=== PATIENT | male | born 1950 | race Caucasian/White ===

== ENCOUNTER → 2018-05-12 | Outpatient (CLI) | payer MEDICARE, OTHER ==
[~2018-05-12] MED LIST: AMANTADINE100 M1 PO; ASPIR 8181 MG PO; AZILECT0.5 MG PO; COREG6.25 MG PO; FLOMAX0.4 MG PO; MAXZIDE-25 MG1 EACH PO; MYRBETRIQ50 MG PO; PRILOSEC 20 MG20 MG PO; SINEMET 25-1001 EAC1 PO; VESICARE 5 MG TA5 MG PO
[2018-05-12 16:17] LABS: HEMATOCRIT 46.8 % (42.0-52.0); HEMOGLOBIN 16.2 gm/dL (14.0-18.0); MCH 31.6 pg (26.0-34.0); MCHC 34.5 g/dL (28.0-37.0); MCV 91.5 fL (80.0-100.0); MPV 8.6 fl. (7.2-11.1); RBC 5.12 mil/uL (4.50-6.00); RDW-CV 13.8 % (10.5-14.5); WBC 7.9 thou/uL (4.0-11.0)
[2018-05-12 16:31] LABS: ALBUMIN 3.9 g/dL (3.4-5.0); ALKALINE PHOSPHATASE 59 U/L (46-116); ANION GAP 6 mmol/L (7-16); BUN 18 mg/dL (7-18); CALCIUM 8.7 mg/dL (8.5-10.1); CHLORIDE 105 mmol/L (98-107); CHOLESTEROL 127 mg/dL (<200); CO2 32 mmol/L (21-32); CREATININE 1.2 mg/dL (0.6-1.3); GLUCOSE 100 mg/dL (70-99); HDL CHOLESTEROL 57 mg/dL (>40); LDL CHOLESTEROL 62 mg/dL (<100); POTASSIUM 3.6 mmol/L (3.5-5.1); SERUM ASSESSMENT Clear; SGOT 14 U/L (15-37); SGPT 12 U/L (30-65); SODIUM 143 mmol/L (136-145); TC:HDL 2.2 Ratio (Not establshd); TOTAL BILIRUBIN 0.9 mg/dL (<0.1-1.0); TOTAL PROTEIN 7.8 g/dL (6.4-8.2); TRIGLYCERIDE 44 mg/dL (<150); VLDL 9 mg/dL (<40)
== END ==
LOC: M.LAB 15:54
PROVIDERS: Internal Medicine Cardiovascular Disease
DX: I10 Essential (primary) hypertension (principal)

== ENCOUNTER 2020-02-22 15:57 | Inpatient (IN) | payer MEDICARE, OTHER ==
[~2020-02-22] VITALS: Ht 190.5 cm; Wt 100.8 kg
[2020-02-22 16:00] VITALS: BP 155/95
[2020-02-22 16:25] LABS: HEMATOCRIT 43.1 % (42.0-52.0); MCH 31.1 pg (26.0-34.0); MCHC 34.8 g/dL (28.0-37.0); MCV 89.5 fL (80.0-100.0); MPV 8.5 fl. (7.2-11.1); NUCLEATED RBCS 0 /100WBC; PLATELET COUNT* 133 thou/uL (150-400); RBC 4.82 mil/uL (4.50-6.00); RDW-CV 13.6 % (10.5-14.5)
[2020-02-22 16:34] LABS: CALCIUM 7.4 mg/dL (8.5-10.1); CREATININE 1.1 mg/dL (0.6-1.3)
[2020-02-22 16:36] LABS: APTT 37.4 Seconds (25.0-31.3); INR 1.1; PROTIME 11.7 Seconds (9.20-11.50)
[2020-02-22 16:50] LABS: ALBUMIN 2.6 g/dL (3.4-5.0); TOTAL BILIRUBIN 0.9 mg/dL (<0.1-1.0); TOTAL PROTEIN 6.7 g/dL (6.4-8.2)
[2020-02-22 16:52] LABS: POTASSIUM 2.8 mmol/L (3.5-5.1)
[2020-02-22 17:14] LABS: ABSOLUTE LYMPHOCYTES 0.6 thou/uL (0.8-5.3); ABSOLUTE MONOCYTES 0.1 thou/uL (0.0-1.2); ABSOLUTE NEUTROPHILS 6.2 thou/uL (1.6-8.1); ATYPICAL LYMPHS 5 %; PLATELET ESTIMATE ADEQUATE
[2020-02-22 21:07] VITALS: BP 132/90
[2020-02-22 21:30] VITALS: BP 127/80
[2020-02-23] VITALS: BP 147/89
[2020-02-23 04:00] VITALS: BP 164/107
[2020-02-23 05:22] LABS: CALCIUM 8.5 mg/dL (8.5-10.1); POTASSIUM 3.6 mmol/L (3.5-5.1)
[2020-02-23 05:24] LABS: MAGNESIUM 2.1 mg/dL (1.8-2.4); PHOSPHORUS* 3.2 mg/dL (2.5-4.9)
[2020-02-23 07:02] LABS: URINE BILIRUBIN NEGATIVE (Negative); URINE BLOOD 3+ (Negative); URINE CLARITY CLEAR; URINE COLOR YELLOW; URINE GLUCOSE-RANDOM 1+ (Negative); URINE KETONES 2+ (Negative); URINE LEUKOCYTES-REFLEX NEGATIVE (Negative); URINE NITRITE-REFLEX NEGATIVE (Negative); URINE PROTEIN 1+ (Negative); URINE SPECIFIC GRAVITY >= 1.030 (1.005-1.030)
[2020-02-23 07:09] LABS: BACTERIA-REFLEX 1-9 Few /HPF (None Seen); CASTS None Seen /LPF (None Seen); CRYSTALS None Seen /LPF (None Seen); MUCUS 0-3 Light strn/LPF (None Seen); SQUAMOUS 0-3 Few /LPF (0-3); URINE RBC >20 Many /HPF (0-2); URINE WBC-REFLEX 0-5 Rare /HPF (0-5)
[2020-02-23 09:30] VITALS: BP 123/90
--- NOTE | 2020-02-23 10:59 | EKG ---
[place] [address] ELECTROCARDIOGRAM REPORT Name: AMIRAHMAXWELL Room: [address] ADM IN M.R.#: [id number] Admission: 02/22/20 Attend Phys: Ildefonso Mathews Discharge: Date of : 50 Date of Service: 02/22/20 1615 Report #: [id number] THIS REPORT FOR: //name// [facility] ED Test Date: 2020-02-22 Test Time: 16:15:42 Pat Name: MAXWELL MACARIO Department: Room: [facility] Gender: M Transformer Maker: RC : 1950 Requested By: Peterson Reyes Order Number: [id number] MD: Cuauhtemoc Hope Measurements Intervals [place] Rate: 97 P: 25 [place]: 154 QRS: 31 QRSD: 89 T: -34 QT: 341 QTc: 433 Interpretive Statements Sinus rhythm artifact noted Borderline T wave abnormalities No previous ECG available for comparison Electronically Signed On 02-23-2020 10:59:23 SPEECH COMMUNICATION PROFESSOR by Cuauhtemoc Hope [email or web address] <ELECTRONICALLY SIGNED> By: Cuauhtemoc Hope MD, [facility] 02/23/20 1059 1615 1615 Cuauhtemoc Hope MD, [facility] /EPI
[2020-02-23 12:00] VITALS: BP 142/90
[2020-02-23 16:00] VITALS: BP 154/50
[2020-02-23 20:00] VITALS: BP 157/99
[2020-02-24] VITALS: BP 114/93
[2020-02-24 04:00] VITALS: BP 141/89
[2020-02-24 08:00] VITALS: BP 163/103
[2020-02-24 11:30] VITALS: BP 146/91
[2020-02-24 16:30] VITALS: BP 150/95
[2020-02-24 20:49] VITALS: BP 159/87
[2020-02-25 00:08] VITALS: BP 152/84
[2020-02-25 04:00] VITALS: BP 147/94
[2020-02-25 05:12] LABS: HEMATOCRIT 39.6 % (42.0-52.0); HEMOGLOBIN 13.5 gm/dL (14.0-18.0); MCH 30.6 pg (26.0-34.0); MPV 8.4 fl. (7.2-11.1); RBC 4.4 mil/uL (4.50-6.00); RDW-CV 13.5 % (10.5-14.5)
[2020-02-25 05:24] LABS: ALBUMIN 2.1 g/dL (3.4-5.0); CALCIUM 7.5 mg/dL (8.5-10.1); CREATININE 0.9 mg/dL (0.6-1.3); POTASSIUM 3.6 mmol/L (3.5-5.1); TOTAL BILIRUBIN 0.6 mg/dL (<0.1-1.0); TOTAL PROTEIN 5.6 g/dL (6.4-8.2)
[2020-02-25 07:50] VITALS: BP 150/90
--- NOTE | 2020-02-25 12:37 | CON ---
[address] [address] CONSULTATION Name: MAXWELL MACARIO Room: [address] IN M.R.#: [id number] Admission: 02/22/20 Attend Phys: Ildefonso Álvarez, Discharge: Date of : 50 Report #: [id number] THIS REPORT FOR: cc: Damon Alberts MD, Usman MD ~ Yaw Swann MD DATE OF SERVICE: 02/24/2020 REQUESTING PHYSICIAN: Armaan Wallace D.O. INDICATION FOR CONSULTATION: COVID-19. HISTORY OF PRESENT ILLNESS: This is a 69-year-old gentleman with past medical history is as mentioned below. He does have an extensive history of smoking and therefore, although COPD is not listed on his records, I have suspicion that he may have underlying COPD. The patient also has had severe gastroesophageal reflux in the past and has parkinsonism. The patient is now admitted with acute shortness of breath. He was also hypoxemic with O2 saturations dropping to 85% at home. The patient has had a meeting with an individual who is now known to be COVID positive recently. Initially, he did have some chest pain and shortness of breath as well. He had been coughing in addition to being febrile. He was feeling significantly weak and had some sputum production and congestion in his chest as well. There is no swelling of lower extremities or calf pain. He answers to the negative for 10 questions for review of systems except as above. PAST MEDICAL HISTORY: Parkinsonism, severe gastroesophageal reflux in the past with Brunson's esophagus. Reflexes now under control. 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 SOCIAL HISTORY: Previous history of smoking, now discontinued. No known history of heavy alcohol use or illegal drug use. ALLERGIES: SULFONAMIDE ANTIBIOTICS. FAMILY HISTORY: No pertinent family history; however, as above he has had contact with an individual who is known to be COVID positive. LABORATORY DATA AND IMAGING: The patient's lab work and x-rays reviewed. PHYSICAL EXAMINATION: GENERAL: He is alert, awake, and oriented. VITAL SIGNS: In the records reviewed. [place] [address] CONSULTATION Name: MAXWELL MACARIO Room: [address] IN [facility].#: [id number] Admission: 02/22/20 Attend Phys: Ildefonso Álvarez, Discharge: Date of : 50 Report #: [id number] NECK: Does not show raised JVP. CHEST: Clear to auscultation. HEART: Regular, no murmur. ABDOMEN: Soft and nontender. EXTREMITIES: Lower extremities, no edema and no calf tenderness. ASSESSMENT AND PLAN: 1. COVID-19. I will begin tapering down his steroids and follow response and because he is already improving and he is on room air, I decided not to start with remdesivir and convalescent plasma. At this state certainly if he was to worsen, these will be considerations. 2. Pulmonary infiltrates. The patient's chest x-ray is reviewed. He does have bilateral pulmonary infiltrates including a band-like infiltrate in the right mid lung field. I do not have a previous x-ray available for comparison. As the infiltrate in the right mid zone is focal, I suspect that there may be some secondary bacterial infection as well. The patient already is on azithromycin as well as ceftriaxone and I feel that this is reasonable. If feasible, then we will do a nasal swab for methicillin-resistant Staphylococcus aureus and sputum culture. 3. History of parkinsonism. 4. History of severe gastroesophageal reflux disease, he is on Protonix. 5. History of smoking, suspect he has underlying chronic obstructive pulmonary disease, Jaimevana is added. 6. Deep vein thrombosis prophylaxis, we will add Lovenox. 7. Evaluation for thromboembolic phenomena. I ordered a D-dimer with morning labs. In case he fails to improve and his D-dimer is elevated, then evaluating further for thromboembolism could be a consideration tomorrow. Thanks for this consultation. <ELECTRONICALLY SIGNED> By: Yaw Swann MD 02/25/20 1237 1721 2052Alinda Swann MD /nt
[2020-02-25 15:35] VITALS: BP 134/79
[2020-02-25 19:40] VITALS: BP 151/94
[2020-02-26] VITALS (7 sets, daily range): BP systolic 153–173; BP diastolic 96–108
[2020-02-26 05:15] LABS: HEMATOCRIT 39.9 % (42.0-52.0); HEMOGLOBIN 13.7 gm/dL (14.0-18.0); MCH 30.8 pg (26.0-34.0); MCHC 34.3 g/dL (28.0-37.0); MCV 89.7 fL (80.0-100.0); MPV 8.7 fl. (7.2-11.1); NUCLEATED RBCS 0 /100WBC; PLATELET COUNT* 156 thou/uL (150-400); RBC 4.45 mil/uL (4.50-6.00); RDW-CV 13.9 % (10.5-14.5); WBC 10.5 thou/uL (4.0-11.0)
[2020-02-26 05:37] LABS: ALBUMIN 2.2 g/dL (3.4-5.0); CREATININE 1.1 mg/dL (0.6-1.3); POTASSIUM 3.8 mmol/L (3.5-5.1); TOTAL BILIRUBIN 0.5 mg/dL (<0.1-1.0); TOTAL PROTEIN 6.1 g/dL (6.4-8.2)
[2020-02-26 07:18] LABS: ABSOLUTE LYMPHOCYTES 0.5 thou/uL (0.8-5.3); ABSOLUTE MONOCYTES 0.4 thou/uL (0.0-1.2); ABSOLUTE NEUTROPHILS 9.6 thou/uL (1.6-8.1); METAMYELOCYTES 2 %; PLATELET ESTIMATE ADEQUATE
[2020-02-26 16:05] LABS: CALCIUM 7.7 mg/dL (8.5-10.1); POTASSIUM 3.7 mmol/L (3.5-5.1)
[2020-02-27 02:14] VITALS: BP 161/101; BP 165/108; BP 173/96
[2020-02-27 08:05] VITALS: BP 168/100
[2020-02-27 12:00] VITALS: BP 159/101
[2020-02-27 13:05] VITALS: BP 145/94
[2020-02-27 16:00] VITALS: BP 164/98
[2020-02-27 20:30] VITALS: BP 165/60
[2020-02-28] VITALS: BP 155/95
[2020-02-28 04:00] VITALS: BP 145/93
[2020-02-28 05:03] LABS: HEMATOCRIT 42.1 % (42.0-52.0); HEMOGLOBIN 14.4 gm/dL (14.0-18.0); MCH 30.4 pg (26.0-34.0); MCHC 34.1 g/dL (28.0-37.0); MPV 8.3 fl. (7.2-11.1); RBC 4.73 mil/uL (4.50-6.00); RDW-CV 13.7 % (10.5-14.5); WBC 11.9 thou/uL (4.0-11.0)
[2020-02-28 05:30] LABS: ALBUMIN 2.2 g/dL (3.4-5.0); CALCIUM 7.7 mg/dL (8.5-10.1); CREATININE 0.8 mg/dL (0.6-1.3); MAGNESIUM 2.2 mg/dL (1.8-2.4); POTASSIUM 3.9 mmol/L (3.5-5.1); TOTAL BILIRUBIN 0.5 mg/dL (<0.1-1.0)
[2020-02-28 05:50] LABS: BE 2.4 mmol/L (-2 to +3); PCO2 34.1 mmHg (35.0-45.0); PO2 81.6 mmHg (75.0-100.0); pH 7.488 (7.340-7.450)
[2020-02-28 08:00] VITALS: BP 160/99
[2020-02-28 13:35] VITALS: BP 121/77
[2020-02-28 17:53] VITALS: BP 144/94
[2020-02-28 20:00] VITALS: BP 146/91
[2020-02-29 00:20] VITALS: BP 146/92
[2020-02-29 04:44] VITALS: BP 146/105
[2020-02-29 09:09] VITALS: BP 147/94
[2020-02-29 09:11] LABS: CALCIUM 7.6 mg/dL (8.5-10.1); CREATININE 0.9 mg/dL (0.6-1.3); POTASSIUM 4.2 mmol/L (3.5-5.1)
[2020-02-29 16:00] VITALS: BP 139/83
[2020-02-29 20:00] VITALS: BP 138/90
[2020-03-01 00:29] VITALS: BP 135/87
[2020-03-01 04:00] VITALS: BP 162/100
[2020-03-01 08:30] VITALS: BP 154/97
[2020-03-01 09:53] LABS: CALCIUM 7.6 mg/dL (8.5-10.1); CREATININE 0.9 mg/dL (0.6-1.3); POTASSIUM 4.1 mmol/L (3.5-5.1)
[2020-03-01 12:30] VITALS: BP 126/80
[2020-03-01 16:00] VITALS: BP 126/87
[2020-03-01 20:00] VITALS: BP 130/86
[2020-03-02 00:58] VITALS: BP 125/79
[2020-03-02 05:03] VITALS: BP 137/89
[2020-03-02 05:08] LABS: HEMATOCRIT 43.3 % (42.0-52.0); HEMOGLOBIN 14.7 gm/dL (14.0-18.0); MCHC 33.8 g/dL (28.0-37.0); MCV 88.8 fL (80.0-100.0); MPV 8.5 fl. (7.2-11.1); NUCLEATED RBCS 0 /100WBC; PLATELET COUNT* 285 thou/uL (150-400); RBC 4.88 mil/uL (4.50-6.00); RDW-CV 13.5 % (10.5-14.5); WBC 12.8 thou/uL (4.0-11.0)
[2020-03-02 05:17] LABS: ALBUMIN 2.3 g/dL (3.4-5.0); CALCIUM 7.5 mg/dL (8.5-10.1); CREATININE 0.9 mg/dL (0.6-1.3); MAGNESIUM 2.2 mg/dL (1.8-2.4); TOTAL BILIRUBIN 0.7 mg/dL (<0.1-1.0); TOTAL PROTEIN 5.7 g/dL (6.4-8.2)
[2020-03-02 06:31] LABS: ABSOLUTE LYMPHOCYTES 0.5 thou/uL (0.8-5.3); ABSOLUTE MONOCYTES 0.8 thou/uL (0.0-1.2); ABSOLUTE NEUTROPHILS 11.5 thou/uL (1.6-8.1); METAMYELOCYTES 1 %; PLATELET ESTIMATE ADEQUATE
[2020-03-02 08:15] VITALS: BP 140/87
[2020-03-02] MEDS ORDERED: FISH OIL 1,001000 M2 PO (11:24)
[2020-03-02] MEDS ORDERED: FELODIPINE 5 MG5 M1 PO (11:24)
[2020-03-02] MEDS ORDERED: ASPIRIN-DIPYRI1 EACH PO (11:24)
[2020-03-02] MEDS ORDERED: VITAMIN C1000 MG PO (11:26)
[2020-03-02] MEDS ORDERED: VITAMIN D325 MCG PO (11:27)
[2020-03-02 12:00] VITALS: BP 131/82
[2020-03-02 12:09] VITALS: BP 140/87
== END 2020-03-02 15:30 | DRG 177 ==
LOC: M.ERS 15:57 → M.ORTHSURG 17:16 → M.TBA-ER 17:16 → M.ORTHSURG 22:36
PROVIDERS: Family Medicine; Internal Medicine; Internal Medicine Critical Care Medicine; ADMIT Family Medicine; ATTEND Family Medicine
DX: U07.1 COVID-19 (principal); J12.89 Other viral pneumonia; J96.01 Acute respiratory failure with hypoxia; N40.0 Benign prostatic hyperplasia without lower urinary tract symptoms; K21.9 Gastro-esophageal reflux disease without esophagitis; R77.8 Other specified abnormalities of plasma proteins; E87.6 Hypokalemia; I10 Essential (primary) hypertension; G20 Parkinson's disease; Z88.2 Allergy status to sulfonamides; Z98.42 Cataract extraction status, left eye; Z98.41 Cataract extraction status, right eye; Z79.899 Other long term (current) drug therapy; Z87.891 Personal history of nicotine dependence; Z23 Encounter for immunization